=== PATIENT | female | born 1990 | race American Indian/Alaskan Native ===

== ENCOUNTER 2017-06-23 22:22 | Emergency (ER) | payer BC ==
[2017-06-24] MEDS ORDERED: TYLENOL PO ONE (03:35)
[2017-06-24] MEDS ORDERED: REGLAN IV ONE (03:35)
--- NOTE | 2017-06-24 05:09 | Emergency Department Report ---
ED Headache HPI - General Chief Complaint: Headache Stated Complaint: HEADACHE Time Seen by Provider: 06/24/17 03:35 - History of Present Illness Initial Comments: 26-year-old female past medical history none presents with complaint of headache since yesterday. Patient states she has been stressed out denies any direct head trauma no fever no chills no neck rigidity no photophobia no photophobia no aura. States that she has right temporal tension headache. Denies any earache dental pain no sore throat. No reports of cough. Patient is awake alert and oriented 3 does not appear to be in acute distress. Denies any upper or lower extremity paresthesias no blurry vision or reports of dizziness. Patient is visibly ambulatory without assistance Timing/Duration: 24 hours, waxing and waning Quality: moderate Head Injury Location: temporal (right-sided temporal) Recent Head Trauma: occasional headaches Associated Symptoms: denies symptoms Allergies/Adverse Reactions: Allergies No Known Allergies Allergy (Verified 06/23/17 22:41) Home Medications: Ambulatory Orders Famotidine [Pepcid] 20 mg PO BID PRN #1 box 06/24/17 Naproxen [Naprosyn TAB] 500 mg PO BID PRN #30 tablet 06/24/17 ED Review of Systems ROS: Stated complaint: HEADACHE Other details as noted in HPI Constitutional: denies: chills, fever Eyes: denies: eye pain, eye discharge, vision change ENT: denies: ear pain, throat pain Respiratory: denies: cough, shortness of breath, wheezing Cardiovascular: denies: chest pain, palpitations Endocrine: no symptoms reported Gastrointestinal: denies: abdominal pain, nausea, diarrhea Genitourinary: denies: urgency, dysuria, discharge Musculoskeletal: denies: back pain, joint swelling, arthralgia Skin: denies: rash, lesions Neurological: denies: headache, weakness, paresthesias Psychiatric: denies: anxiety, depression Hematological/Lymphatic: denies: easy bleeding, easy bruising ED Past Medical Hx - Past Medical History Previous Medical History?: No - Surgical History Past Surgical History?: No - Social History Smoking Status: Never Smoker Substance Use Type: None - Medications Home Medications: Home Medications Medication Instructions Recorded Confirmed Last Taken Type Famotidine [Pepcid] 20 mg PO BID PRN #1 box 06/24/17 Unknown Rx Naproxen [Naprosyn TAB] 500 mg PO BID PRN #30 tablet 06/24/17 Unknown Rx ED Physical Exam - General Limitations: No Limitations General appearance: alert, in no apparent distress - Head Head exam: Present: atraumatic, normocephalic - Eye Eye exam: Present: normal appearance, PERRL, EOMI - ENT ENT exam: Present: normal exam, mucous membranes moist - Neck Neck exam: Present: normal inspection, full ROM - Respiratory Respiratory exam: Present: normal lung sounds bilaterally. Absent: respiratory distress - Cardiovascular Cardiovascular Exam: Present: regular rate, normal rhythm. Absent: systolic murmur, diastolic murmur, rubs, gallop - GI/Abdominal GI/Abdominal exam: Present: soft, normal bowel sounds - Extremities Exam Extremities exam: Present: normal inspection - Back Exam Back exam: Present: normal inspection - Neurological Exam Neurological exam: Present: alert, oriented X3, CN II-XII intact, normal gait - Expanded Neurological Exam Expanded Patient oriented to: Present: person, place, time Cranial nerves: EOM's Intact: Normal Cerebellar function: Finger to Nose: Normal, Heel to Douglas: Normal, Romberg: Normal Sensory exam: Upper Extremity Light Touch: Normal, Lower Extremity Light Touch: Normal Motor strength exam: RUE: 5, LUE: 5, RLE: 5, LLE: 5 Best Eye Response (Javier): (4) open spontaneously Best Motor Response (Decorah): (6) obeys commands Best Verbal Response (Javier): (5) oriented Decorah Total: 15 - Psychiatric Psychiatric exam: Present: normal affect, normal mood - Skin Skin exam: Present: warm, dry, intact, normal color. Absent: rash ED Course Vital Signs 06/23/17 06/24/17 22:41 02:27 Temperature 98.0 F 98.4 F Pulse Rate 73 80 Respiratory 20 18 Rate Blood Pressure 121/81 118/79 O2 Sat by Pulse 100 100 Oximetry ED Medical Decision Making - Medical Decision Making A/P: Tension type headache 1-patient states that she has no headache whatsoever after 1 dose of Reglan, feels significantly better 2-patient has no clinical neurological deficits cranial nerves I through XII grossly intact 5 out of 5 strength all extremities patient is able to without assistance is awake alert and oriented 3 fully lucid and no meningeal signs including photophobia phonophobia or neck rigidity 3-when necessary Tylenol and naproxen, follow up with primary care doctor Critical care attestation.: If time is entered above; I have spent that time in minutes in the direct care of this critically ill patient, excluding procedure time. ED Disposition Clinical Impression: Headache Qualifiers: Headache type: tension-type Headache chronicity pattern: acute headache Intractability: not intractable Qualified Code(s): G44.209 - Tension-type headache, unspecified, not intractable Disposition: DC-01 TO HOME OR SELFCARE Is pt being admited?: No Does the pt Need Aspirin: No Condition: Stable Instructions: Tension Headache (ED) Prescriptions: Famotidine [Pepcid] 20 mg PO BID PRN #1 box PRN Reason: Indigestion Naproxen [Naprosyn TAB] 500 mg PO BID PRN #30 tablet PRN Reason: Headache Referrals: NAN REED MD [Other] - 3-5 Days [facility] [Provider Group] - 3-5 Days Forms: Work/School Release Form(ED) Time of Disposition: 05:09
[2017-06-24 05:21] VITALS: BP 112/73
== END 2017-06-24 05:21 | disposition home or self-care (01) ==
LOC: ED 22:22
DX: G44.209 Tension-type headache, unspecified, not intractable (principal)
CPT/HCPCS: 96374; 99283; J2765